=== PATIENT | female | born 1995 | race Hispanic/Latino ===

== ENCOUNTER 2018-03-17 17:32 | Emergency (ER) | payer BC ==
[2018-03-17 17:51] VITALS: BP 121/66; PULSE 103; RESP 20; TEMP 98; O2SAT 99
[2018-03-17] MEDS ORDERED: Lidocaine 1% w Epi 1:100,000 Inj IJ ONE (18:01)
[2018-03-17] MEDS ORDERED: Lidocaine 1% w Epi 1:100,000 Inj ONE (18:32)
--- NOTE | 2018-03-17 18:53 | ED PDOC ---
HPI: General Adult Time Seen by Provider: 03/17/18 17:46 Chief Complaint (Nursing): Abnormal Skin Integrity Chief Complaint (Provider): Abnormal Skin Integrity History Per: Patient, Family (friend) History/Exam Limitations: no limitations Onset/Duration Of Symptoms: Hrs (prior to arrival) Current Symptoms Are (Timing): Still Present Additional Complaint(s): Destiny Marie is a 22 year old female with no past medical history, who is presenting to the ER with friend for evaluation of facial injury, s/p fall prior to arrival. As per friend at beside, patient was allegedly running when she tripped and fell during which she struck her head on a metal door. Friend reports that the fall was un-witnessed and patient admits to alcohol use. Friend states that there was no loss of consciousness, nausea, vomiting, neck pain, or previous head injury. Patient offers no other medical complaints at this time. PMD: none provided Past Medical History Reviewed: Historical Data, Nursing Documentation, Vital Signs Vital Signs: Last Vital Signs Temp 98.0 F 03/17/18 17:47 Pulse 103 H 03/17/18 17:47 Resp 20 03/17/18 17:47 BP 121/66 03/17/18 17:47 Pulse Ox 99 03/17/18 22:45 - Medical History PMH: No Chronic Diseases - Family History Family History: States: Unknown Family Hx - Allergies Allergies/Adverse Reactions: Allergies Allergy/AdvReac Type Severity Reaction Status Date / Time No Known Allergies Allergy Verified 03/17/18 17:47 Review of Systems ROS Statement: Except As Marked, All Systems Reviewed And Found Negative Constitutional: Positive for: Other (fical injury) Gastrointestinal: Negative for: Nausea, Vomiting Musculoskeletal: Negative for: Neck Pain Neurological: Negative for: Other (loss of consciousness) Physical Exam - Reviewed Nursing Documentation Reviewed: Yes Vital Signs Reviewed: Yes - Physical Exam Appears: Positive for: Non-toxic, No Acute Distress Head Exam: Positive for: ATRAUMATIC, NORMAL INSPECTION, NORMOCEPHALIC Skin: Positive for: Normal Color, Warm, DRY Eye Exam: Positive for: Normal appearance, EOMI, PERRL, Other (2.5 cm linear superficial laceration above left eyebrow, no active bleeding, no periorbital tenderness or swelling) ENT: Positive for: TM Is/Are (no hemotympanum), Other (mild nasal bridge tenderness and swelling without deformity; no epistaxis). Negative for: Sinus Pain/Drainage Neck: Positive for: Normal, Painless ROM, Supple Cardiovascular/Chest: Positive for: Regular Rate, Rhythm, Chest Non Tender Respiratory: Positive for: Normal Breath Sounds. Negative for: Respiratory Distress Gastrointestinal/Abdominal: Positive for: Soft. Negative for: Tenderness Back: Positive for: Normal Inspection. Negative for: L CVA Tenderness, R CVA Tenderness, Vertebral Tenderness (including cervical spine) Extremity: Positive for: Normal ROM. Negative for: Deformity, Swelling Neurologic/Psych: Positive for: Alert, Oriented, Gait (unsteady), Other ( slurred speech, AOB). Negative for: Motor/Sensory Deficits, Aphasia - ECG O2 Sat by Pulse Oximetry: 99 (RA) Pulse Ox Interpretation: Normal Medical Decision Making Medical Decision Making: Time: 18:01 Plan: --CT Head --Xylocaine [address] head w/o contrast: no ICH; possible nasal fracture correlate clinically Dr. Hollis in ED who evaluated pt. for nasal fracture and also offered to redo laceration repair. Dr. Hollis spoke with patient and patient's mother (via phone) who both agree to Dr. Hollis redoing the laceration repair. Dr. Hollis performed laceration repair in ED and arranged f/u in his office. Pt. with steady unassisted gait and will be dc'd under La's (pt.'s roommate) care. Scribe Attestation: Documented by Katelynn Johnson, acting as a scribe for Nicho Umanzor PA-C. Provider Scribe Attestation: All medical record entries made by the Scribe were at my direction and personally dictated by me. I have reviewed the chart and agree that the record accurately reflects my personal performance of the history, physical exam, medical decision making, and the department course for this patient. I have also personally directed, reviewed, and agree with the discharge instructions and disposition. Procedures - Time-Out Type of Procedure: Facial laceration Site of Procedure: L side of face just abover eyebrow Correct Patient (with visual ID + MR# on ID Band): Yes Correct Procedure: Yes Correct Site Marked: Yes PA/Tech: Erna - Laceration/Wound Repair Laceration Wound Length (cm): 3 Wound's Depth, Shape: superficial, linear Wound Explored: clean Irrigated w/ Saline (ccs): 200 Betadine Prep?: Yes Anesthesia: Lidocaine w/ Epi Volume Anesthetic (ccs): 4 Wound Repaired With: Sutures Suture Size/Type: 6:0, proline Number of Sutures: 5 Layer Closure?: No Wound Complexity: Simple Disposition - Clinical Impression Clinical Impression: Head injury, Facial laceration, Alcohol intoxication, Nasal fracture - Patient ED Disposition Is Patient to be Admitted: No - Disposition Referrals: Isabelle Hollis MD [Medical Doctor] - Disposition: Routine/Home Disposition Time: 20:12 Condition: IMPROVED Additional Instructions: Follow up with Dr. Hollis on Monday without fail. Return to ED immediately if symptoms worsen. Instructions: Laceration Repair, Minor Head Injury (DC), Nose Fracture (DC) Forms: [facility] (Upper Sorbian) Print Language: NEPALI
--- NOTE | 2018-03-17 20:02 | CT ---
EXAM: CT Head Without Intravenous Contrast CLINICAL HISTORY: 22 years old, female; Injury or trauma; Fall; Initial encounter; Abrasion; Forehead TECHNIQUE: Axial computed tomography images of the head/brain without intravenous contrast. All CT scans at this facility use one or more dose reduction techniques, viz.: automated exposure control; ma/kV adjustment per patient size (including targeted exams where dose is matched to indication; i.e. head); or iterative reconstruction technique. Coronal and sagittal reformatted images were created and reviewed. COMPARISON: No relevant prior studies available. FINDINGS: Brain: No hemorrhage. No significant white matter disease. No edema. Ventricles: No hydrocephalus. Bones: Skull is intact. Mild nasal bone irregularity. Correlate clinically if there is concern for acute injury/fracture. Dedicated facial bone imaging can aid in evaluation. Sinuses: No acute sinusitis. Mastoid air cells: No mastoid effusion. IMPRESSION: No CT evidence of acute intracranial abnormality. Mild nasal bone irregularity. Correlate clinically if there is concern for acute injury/fracture. Dedicated facial bone imaging can aid in evaluation.
--- NOTE | 2018-03-20 06:33 | CON ---
DATE: 03/17/2018 HISTORY OF PRESENT ILLNESS: This is a 22-year-old healthy female, who ran into a metal door, presented to the Emergency Room with multiple facial laceration. The CAT scan done by the ER staff showed bilateral minimally displaced nasal bone fractures. She also had a 3 cm left lateral eyebrow laceration and there is a complex wound down at the bone. ER staff consulted me. I thus came into evaluate and treat the patient and the CAT scan showed bilateral nasal bone fracture. PHYSICAL EXAMINATION HEENT: The patient had a tenderness to bilateral nasal bones and the left nasal bone appeared to be minimally infractured, the right nasal bone was possibly minimally outfractured. The septum was deviated to the left. There is no septal hematoma. The orbital bones were tender and left lateral superior orbital bone was tender. The inferior orbital bone was nontender. Extraocular movement exam is intact. There is no double vision. The light reflex to the tip of the nose was slightly crooked, but swollen. Her occlusion was normal. There is a 3 cm laceration of the left lateral eyebrow, they were down to the bone involving the muscle. She was neurovascularly intact. I explained to the patient and her mother over the telephone that there would be scarring and my job as a plastic surgeon is to minimize it. I also told her, her nose is little bit swollen and that we would treated with medication and tips to decrease swelling and that if her nose needs to be reduced with manipulation has to be done within 2 weeks and at this time it was too swollen to do anything. I also warned them about the possibility of alopecia on the area of the eyebrow. They understood this and wished to proceed. Risks and benefits were fully discussed and all questions were answered and I will dictate a separate operative report. Isabelle Hollis MD
--- NOTE | 2018-03-20 06:42 | OP ---
PROCEDURE DATE: 03/17/2018 PREOPERATIVE DIAGNOSES: 1. 3 cm left lateral eyebrow laceration. 2. Bilateral nasal bone fracture. POSTOPERATIVE DIAGNOSES: 1. 3 cm left lateral eyebrow laceration. 2. Bilateral nasal bone fracture. PROCEDURE PERFORMED: 1. Complex repair of 3 cm left eyebrow laceration. 2. Closed treatment without manipulation of bilateral nasal bone fracture. 3. Left supraorbital nerve block. SURGEON: Isabelle Hollis MD INDICATIONS FOR PROCEDURE: Please refer to my separately dictated ER consultation for history and physical. DESCRIPTION OF PROCEDURE: 1% lidocaine was used in the left supraorbital nerve block. After allowing sufficient time for the anesthetic to take effect, the left eyebrow open wound was irrigated with normal saline and the area was prepped and draped in usual clean and sterile manner. Laceration done at the bone and the bone was nontender. There was no signs of any fracture. Using 4-0 Monocryl, lined up, and approximated orbicularis oculi muscle in interrupted fashion. Used 4-0 Monocryl, lined up, and approximated subcutaneous tissue in interrupted fashion. Using 5-0 Monocryl, lined up, and approximated deep dermis in interrupted fashion. I closed the 3 cm epidermis in a running 6-0 Prolene suture. Since the nose was swollen and the left nasal bone appeared to be in fracture, at this time, I treated bilateral nasal bone fractures in a closed manner without manipulation. The patient was told to take antibiotics, Arnica [place], head at bed elevation, ice pack, and local wound care. Follow up with me in a few days and I warned her that her nose may need to be formally reduced within the next 2 weeks or so. difficulty and the possibility of alopecia in the area of the eyebrow was discussed and all questions were answered. Isabelle Hollis MD
== END 2018-03-17 21:12 | disposition home or self-care (01) ==
LOC: H.ER 17:32
DX: S01.112A Laceration without foreign body of left eyelid and periocular area, initial encounter (principal); S02.2XXA Fracture of nasal bones, initial encounter for closed fracture; W01.0XXA Fall on same level from slipping, tripping and stumbling without subsequent striking against object, initial encounter; F10.129 Alcohol abuse with intoxication, unspecified